=== PATIENT | female | born 1960 | race Caucasian/White ===

== ENCOUNTER 2022-05-01 12:57 | Outpatient (CLI) | payer OTHER, SELFPAY ==
[2022-05-01 22:30] LABS: Albumin* 4.5 g/dL (3.3-5.0)
[2022-05-01 22:31] LABS: Chloride* 103 mmol/L (96-114); Potassium* 4.1 mmol/L (3.6-5.1); Sodium* 140 mmol/L (135-149)
[2022-05-01 22:33] LABS: Aspartate Amino Transferase* 28 U/L (12-35); Bilirubin Total* 0.6 mg/dL (0.1-1.5); Carbon Dioxide* 28 mmol/L (20-32); Cholesterol* 189 mg/dL (90-199); Creatinine* 0.7 mg/dL (0.5-1.5); Estimated Glomerular Filt Rate 98 ml/min
[2022-05-01 22:34] LABS: Alanine Aminotransferase* 22 U/L (4-35); Alkaline Phosphatase* 61 U/L (40-150); Blood Urea Nitrogen* 14 mg/dL (7-30); Calcium* 9.6 mg/dL (8.4-10.6); Glucose* 82 mg/dL (60-115); Total Protein* 7.3 g/dL (6.0-8.3); Triglycerides* 51 mg/dL (40-149)
[2022-05-01 22:35] LABS: HDL Cholesterol* 66 mg/dL (>=50); LDL Cholesterol Calculated 113 mg/dL (<100)
[2022-05-01 23:12] LABS: HIV 1/2/P24 Combo Screen* Negative (Negative)
[2022-05-01 23:21] LABS: Hepatitis C Virus Antibody* Negative (Negative)
[2022-05-04 06:56] LABS: Rapid Plasma Reagin (RPR) Non Reactive (Non Reactive)
== END 2022-05-01 12:58 | disposition home or self-care (01) ==
PROVIDERS: Visit Provider Family Medicine
DX: Z00.00 Encounter for general adult medical examination without abnormal findings (principal); E04.1 Nontoxic single thyroid nodule; G43.109 Migraine with aura, not intractable, without status migrainosus; Z11.3 Encounter for screening for infections with a predominantly sexual mode of transmission; Z13.6 Encounter for screening for cardiovascular disorders
CPT/HCPCS: 80053; 80061; 84443; 86592; 86703; 86803

== ENCOUNTER 2022-05-05 07:58 | Outpatient (CLI) | payer OTHER, SELFPAY ==
--- NOTE | 2022-05-05 08:15 | CRLHL7_ITS ---
For Patients: As a result of the Century Cures Act, medical imaging exams and procedure reports are released immediately into your electronic medical record. You may view this report before your referring provider. If you have questions, please contact your health care provider. INDICATION: FOLLOW UP THYROID NODULES COMPARISON: 10/10/2018 TECHNIQUE: Adame scale and color Doppler images were acquired of the thyroid gland. FINDINGS: The thyroid gland demonstrates normal uniform echogenicity and has a smooth outer contour. The right lobe measures 5.5 x 1.1 x 1.2 cm and the left lobe measures 4.8 x 1.2 x 1.4 cm in size. Isthmus measures 3 millimeters. Mildly complicated cystic nodule within the lateral right thyroid lobe measures 9 x 4 x 4 millimeters. Primarily cystic nodule within the inferior right thyroid lobe measuring 9 x 6 x 7 millimeters. Near isoechoic nodule right thyroid lobe measures 5 x 4 x 6 millimeters. Solid and cystic nodule left thyroid lobe measures 7 x 5 x 5 millimeters. These nodules appear similar in morphology and size compared to the prior study. The color Doppler images demonstrate normal vascularity. There is no evidence of cervical lymphadenopathy or parathyroid mass. IMPRESSION: Benign thyroid nodules bilaterally. No further follow-up indicated. Dictated by Fernando Haider MD @ 05/05/2022 11:10:09 AM (Electronically Signed)
== END 2022-05-05 07:59 | disposition home or self-care (01) ==
LOC: US 07:58
PROVIDERS: Visit Provider Family Medicine
DX: E04.1 Nontoxic single thyroid nodule (principal)
CPT/HCPCS: 76536